=== PATIENT | male | born 1975 | race Caucasian/White ===

== ENCOUNTER 2018-05-04 13:22 | Emergency (ER) | payer MEDICAID, OTHER ==
[~2018-05-04] VITALS: Ht 172.7 cm; Wt 85.0 kg
[2018-05-04 13:29] VITALS: Ht 172.7 cm; Wt 85.0 kg
[2018-05-04] MEDS ORDERED: CEFAZOLIN 1 GM INJ IM ONE (14:00)
[2018-05-04] MEDS ORDERED: DIPHTH/TET/ACEL PERTUSS (ADULT) 0.5 ML VIAL IM* ONE (14:00)
[2018-05-04] MEDS ORDERED: BUPIVACAINE 0.75% (MPF) 10 ML INJ INJ ONE (14:00)
[2018-05-04] MEDS ORDERED: DOCU-159 PO (16:15)
[2018-05-04] MEDS ORDERED: CEPH-443 PO (16:15)
[2018-05-04] MEDS ORDERED: IBUP800T48 PO (16:15)
[2018-05-04] MEDS ORDERED: HYDR-4011 PO (16:15)
[2018-05-04 17:50] VITALS: BP 145/89; PULSE 76; RESP 16
--- NOTE | 2018-05-04 18:23 | ERD ---
ER Documentation Chief Complaint Chief Complaint 3rd digit laceration/swelling/deformity d/t machinery today HPI This is a 42-year-old male who presents with laceration to third finger of left hand status post cutting hand with a skill saw approximately 30 minutes VP SOFTWARE. Patient denies any significant medical history. Patient in no acute distress. Bleeding controlled with pressure dressing. It has not had tetanus immunization in the last 5 years. ROS All systems reviewed and are negative except as per history of present illness. Medications Home Meds Active Scripts Cephalexin* (Keflex*) 500 Mg Capsule, 500 MG PO QID for 7 Days, CAP Prov:ZOYA MANZO NP 05/04/18 Ibuprofen* (Motrin*) 800 Mg Tab, 800 MG PO Q6 PRN for PAIN for 10 Days, #30 TAB Prov:ZOYA MANZO NP 05/04/18 Docusate Sodium* (Docusate Sodium*) 100 Mg Capsule, 100 MG PO BID for constipation, #60 CAP Prov:ZOYA MANZO NP 05/04/18 Hydrocodone/Acetaminophen ([place] 5-325 Tablet) 1 Each Tablet, 1 TAB PO Q4 PRN for PAIN for 7 Days, #15 TAB Prov:ZOYA MANZO NP 05/04/18 Allergies Allergies: Coded Allergies: No Known Allergy (Unverified , 05/04/18) PMhx/Soc Medical and Surgical Hx: pt denies Medical Hx Hx Alcohol Use: No Hx Substance Use: No Hx Tobacco Use: No Smoking Status: Never smoker FmHx Family History: No diabetes, No coronary disease, No other Physical Exam Vitals Vital Signs Date Temp Pulse Resp B/P (MAP) Pulse Ox O2 O2 Flow FiO2 Time Delivery Rate 05/04/18 76 16 145/89 99 Room Air 17:50 (107) 05/04/18 98.9 110 20 197/104 99 13:29 (135) Physical Exam Const: No acute distress Head: Atraumatic Eyes: Normal Conjunctiva ENT: Normal External Ears, Nose and Mouth. Neck: Full range of motion. No meningismus. Resp: Clear to auscultation bilaterally Cardio: Regular rate and rhythm, no murmurs Abd: Soft, non tender, non distended. Normal bowel sounds Skin: No petechiae or rashes Left forearm and hand: Without pain, tenderness, decreased range of motion to elbow, forearm, wrist, no snuffbox tenderness, Refill less than 2 seconds, sensation intact. Patient is right-hand dominant. Left 3rd finger: limited flexion at DIP, possible flexor tendon injury. Full circumferential laceration with avulsion and split through nail. +sanguineous drainage, sensation intact. Ext: No cyanosis, or edema Neur: Awake and alert Psych: Normal Mood and Affect Results 24 hrs Current Medications Medications Dose Sig/Pepe Start Time Status Last (Trade) Ordered Route PRN Stop Time Admin Dose Reason Admin Diphtheria/ 0.5 ml ONCE ONCE 05/04/18 DC 05/04/18 Tetanus/Acell IM* 14:00 14:45 Pertussis 05/04/18 14:06 (Adacel) Bupivacaine 10 ml ONCE ONCE 05/04/18 DC HCl INJ 14:00 (Marcaine 05/04/18 14:06 0.75% (Mpf Ez)) Cefazolin 1 gm ONCE ONCE 05/04/18 DC 05/04/18 Sodium IM 14:00 14:41 (Ancef) 05/04/18 14:06 Procedures/MDM This 42-year-old male presents with laceration to left third finger. Bleeding is controlled patient with minimal pain. And requiring repair and x-ray. Assessment including evaluation of neurovascular status, amputation, retained foreign body, fracture. PROCEDURE: XR Finger. CLINICAL INDICATION: trauma TECHNIQUE: Three views of the left middle finger. COMPARISON: None. FINDINGS: Acute, comminuted and moderately displaced fracture/laceration of the middle finger distal phalanx with adjacent soft tissue injury. No dislocation or arthropathy of the joint spaces. IMPRESSION: Acute, comminuted and moderately displaced fracture/laceration of the middle finger distal phalanx. RPTAT: XX Physician Hernandez Date Time Electronically viewed and signed by Physician Hernandez on 05/04/2018 14:31 Laceration Repair by me: Anesthesia: Bupivicaine Location: digital block of left 3rd digit Tendon/Joint/Nerves: possible injury to flexor tendon Foreign body: None detected after copious irrigation and exploration Technique: Simple Interrupted Sutures, 5-0 nylon x12 Complexity: No subcutaneous sutures/mucosal repair/edge excision Post Closure Length: full circumference of finger Splint placed to finger and forearm with bulky gauze dressing. Patient's bleeding was easily controlled in the department and there is no indication of anemia. No evidence of compartment syndrome, neurologic injury, vascular injury, open joint, tendon laceration, or foreign body. Patient is appropriate for outpatient follow up. 48 hour wound check. Scar minimization instructions given. Patient provided with strict instructions on care of wound and follow-up. Patient provided with oral antibiotics, pain medication, referral to [facility] hand surgeon. Departure Diagnosis: Primary Impression: Finger fracture, left Additional Impression: Finger injury Condition: Stable Patient Instructions: Finger and Toe Fractures (Broken Finger or Toe), Crush Injury, Hand/Finger, Laceration (Sure+Close) Referrals: [facility] Additional Instructions: Follow-up with all of you hand specialist in 1-2 days Keep wound clean and dry Use prescribed pain medications as needed Use caution with using [place], may cause drowsiness, may be habit forming can cause constipation, use docusate sodium if frequent use of [place] Return to emergency room with extreme pain, decreased sensation, swelling, redness, drainage ZOYA MANZO NP May 04, 2018 18:19
== END 2018-05-04 17:50 | disposition home or self-care (01) ==
LOC: FTE 13:22
DX: S61.213A Laceration without foreign body of left middle finger without damage to nail, initial encounter (principal); S62.603A Fracture of unspecified phalanx of left middle finger, initial encounter for closed fracture; W31.1XXA Contact with metalworking machines, initial encounter; Y92.9 Unspecified place or not applicable; Z23 Encounter for immunization
CPT/HCPCS: 12001; 73140; 90471; 90715; 96372; J0690; Z7502; Z7610